=== PATIENT | female | born 1955 | race American Indian/Alaskan Native ===

== ENCOUNTER 2019-07-01 07:06 | Day surgery (SDC) | payer MEDICARE ==
[~2019-07-01 07:06] MED LIST: BACTERIOSTATIC SODIUM CHLORIDE 0.9% 30 ML VIAL INFILTRATI ONE; TETRACAINE 0.5% OPHTH SOLN 4ML OD SCH
--- NOTE | 2019-07-01 08:46 | Anesthesia Consultation ---
Anesthesia Consult and Med Hx Date of service: 07/01/19 - Airway Anesthetic Teeth Evaluation: Partials ROM Head & Neck: Adequate Mental/Hyoid Distance: Adequate Mallampati Class: Class III Intubation Access Assessment: Possibly Difficult - Pulmonary Exam CTA: Yes - Cardiac Exam Cardiac Exam: RRR - Pre-Operative Health Status ASA Pre-Surgery Classification: ASA3 Proposed Anesthetic Plan: MAC - Pulmonary Hx Smoking: No Hx Respiratory Symptoms: No Hx Sleep Apnea: (HIGH RISK) - Cardiovascular System Hx Hypertension: Yes (took coreg and amlodipine today) Hx Heart Attack/AMI: No Hx Percutaneous Transluminal Coronary Angioplasty (PTCA): No - Central Nervous System Hx Neuromuscular Disorder: No (neuropathy) CVA: No - Gastrointestinal Hx Gastroesophageal Reflux Disease: No - Endocrine Hx Renal Disease: No Hx Liver Disease: No Hx Insulin Dependent Diabetes: No Hx Non-Insulin Dependent Diabetes: No Hx Thyroid Disease: No - Hematic Hx Anemia: Yes - Other Systems Hx Obesity: Yes
--- NOTE | 2019-07-01 08:46 | Anesthesia Day of Surgery ---
Anesthesia Day of Surgery - Day of Surgery Patient Examined: Yes Patient H&P Reviewed: Yes Patient is NPO: Yes Beta Blockers: Yes
[2019-07-01] MEDS: TROPICAMIDE 1% OPHTH SOLN 3 ML OD SCH ×3 (08:50→09:00)
[2019-07-01] MEDS: PHENYLEPHRINE 2.5% OPHTH SOLN 2 ML OD SCH ×3 (08:50→09:00)
[2019-07-01] MEDS: MOXIFLOXACIN 0.5% OPHTH SOLN 3ML OD SCH ×3 (08:50→09:00)
[2019-07-01] MEDS ORDERED: MIDAZOLAM 2 MG/2 ML INJ ONE (10:10)
[2019-07-01] MEDS ORDERED: acetaZOLAMIDE 250 MG TAB PO NR (10:11)
[2019-07-01] MEDS ORDERED: prednisoLONE ACETATE 1% OPHTH SUSP 5 ML OD NR (10:11)
[2019-07-01] MEDS ORDERED: fentaNYL 100 MCG/2 ML INJ ONE (10:12)
--- NOTE | 2019-07-01 10:12 | Operative Report ---
Operative Report Operative Report: PATIENT'S NAME: DATE OF : DATE OF SURGERY: 07/01/2019 PREOPERATIVE DIAGNOSIS: Cataract right eye POSTOPERATIVE DIAGNOSIS: Same OPERATIVE PROCEDURE: Phacoemulsification with intraocular lens implantation, right eye SURGEON: Ashly Gross M.D. CREDIT REVIEW ANALYST SURGEON: Flower Lens: [id number] 19.0 D ANESTHESIA: Monitored anesthesia care in combination with topical and intracameral anesthesia because of the established specific risk of reflux, arrhythmias, or anxiety attacks associated with ocular manipulation, as well as the difficulty of the lead teller to manage such potentially catastrophic events while simultaneously attempting to complete the surgical procedure and was deemed necessary for the patient's safety to have an Progress Developer present during the procedure whenever possible. An Progress Developer was utilized to regulate the intravenous sedation of the patient so the patient was cooperative yet not asleep in order for the patient to successfully maintain fixation of the eye on the operating light of the microscope. COMPLICATIONS: No surgical complications No blood loss. ALLERGIES: No known drug allergies PROGNOSIS: Excellent INDICATIONS FOR SURGERY: The patient is undergoing surgery in the hopes of eliminating or improving these visual difficulties. PROCEDURE: After arriving at the surgery center, the patient was given topical anesthetic and dilating drops, as noted in the record. The patient was then taken into the operating room and given more anesthetic drops. The eyelids, lashes, and lid margins were scrubbed with Betadine solution, and the patient was draped. The Nurse Progress Developer administered IV sedation and monitored the patient during the procedure. The eye was then fixated with a 0.12, and a stab incision was made in the peripheral clear cornea into the anterior chamber. This was made on my left side. Viscoelastic was next used to fill the anterior chamber. The eye was once again fixated with the 0.12 forceps and a keratome was used make an incision in clear cornea peripherally on my right hand side temporally. The capsule forceps were used to open the central anterior capsule and then make a continuous round capsulotomy. Hydrodissection was carried out utilizing a cannula and balanced salt solution to delineate the cortical material from the capsule and the nucleus from the cortical material. The phaco tip was introduced into the eye and used to remove the anterior cortical material in the area of the capsulotomy. Then the phaco tip was buried into the nucleus, and a chopping instrument was introduced into the eye and used to provide countertraction in the nucleus between this instrument and the phaco tip fracturing the nucleus. This procedure was repeated multiple times, providing multiple small segments of the lens, and then the phaco tip was used to remove each of these segments. An I/A tip was then used to remove the remaining cortex. The anterior chamber was refilled with viscoelastic. An one-piece, acrylic intraocular lens was then placed into an inserting cartridge. The tip of the inserting cartridge was introduced into the keratome incision and into the anterior chamber. The implant was gently advanced through the cartridge and into the eye, where it unfolded, and both haptics were placed in the capsular bag, where it centered nicely and appeared to be well fixated. After placement of the intraocular lens, the I~and~A handpiece was placed back into the eye and used to remove the viscoelastic, including viscoelastic that was behind the optic of the intraocular lens. The anterior chamber was then filled with balanced salt solution, and hydration of the wound was used to cause swelling of the wound and more appropriate watertight closure. When the wound was found to be firm, the patient was asked to comment on how bright the light was. If there was no light perception at all or if the light was substantially dimmer than during the rest of the surgery, the amount of fluid in the eye was decompressed to lower the intraocular pressure until the patient could see the b right light again. This was done to avoid any damage or decreased blood flow to the optic nerve. MEDICATIONS APPLIED AT END OF SURGERY: One drop of Pred Forte and Vigamox The patient was given a shield to wear at night and was instructed not to rub or push on the eye. DISCHARGE SUMMARY: The patient was released in stable condition. The patient and those with the patient were given a written sheet of postoperative instructions and counseling on any abnormal laboratory studies. The patient is to see us tomorrow for follow-up in the office and is to call immediately for any difficulties. Ashly Gross M.D. Date
--- NOTE | 2019-07-01 10:12 | Short Stay Summary ---
Short Stay Documentation Date of service: 07/01/19 - History H&P: obtained from office - Allergies and Medications Current Medications: Allergies No Known Allergies Allergy (Verified 06/29/19 14:56) Home Medications Medication Instructions Recorded Confirmed Last Taken Type Allopurinol [Zyloprim] 300 mg PO QDAY 06/29/19 06/29/19 06/30/19 History Diclofenac 1% [Diclofenac 1% 1 applic TP QID 06/29/19 06/29/19 06/30/19 History topical gel] Ferrous Sulfate [Feosol] 325 mg PO QDAY 06/29/19 06/29/19 06/30/19 History Gabapentin [Neurontin] 100 mg PO Q8HR 06/29/19 06/29/19 06/30/19 History Ibuprofen [Motrin] 800 mg PO Q8HR PRN 06/29/19 06/29/19 06/30/19 History Losartan/Hydrochlorothiazide 1 each PO DAILY 06/29/19 06/29/19 06/30/19 History [Losartan-Hctz 100-25 mg Tab] Pregabalin [Lyrica] 75 mg PO BID 06/29/19 06/29/19 07/01/19 06:00 History Sulindac 200 mg PO BID 06/29/19 06/29/19 06/30/19 History amLODIPine [Norvasc] 10 mg PO DAILY 06/29/19 06/29/19 07/01/19 06:00 History carvediloL [Coreg] 25 mg PO BID 06/29/19 06/29/19 07/01/19 06:00 History cycloSPORINE [Restasis 0.05%] 1 drop OP BID 06/29/19 06/29/19 06/30/19 History rOPINIRole [Requip] 1 mg PO QHS 06/29/19 06/29/19 06/30/19 History Active Medications Acetazolamide (Diamox) 500 mg PO ONCE NR Stop: 07/01/19 14:00 Moxifloxacin HCl (Vigamox) 1 drops OD Q5MIN YUNG Stop: 07/01/19 16:01 Last Admin: 07/01/19 09:00 Dose: 1 drops Documented by: Phenylephrine HCl (Ak-Dilate) 1 drops OD Q5MIN YUNG Stop: 07/01/19 16:00 Last Admin: 07/01/19 09:00 Dose: 1 drops Documented by: Prednisolone Acetate (Pred Forte 1%) 1 drops OD ONCE ONE Stop: 07/01/19 10:12 Tetracaine HCl (Tetracaine 0.5%) 1 drops OD Q5M YUNG Stop: 07/01/19 16:00 Last Admin: 07/01/19 08:50 Dose: 1 drops Documented by: Tropicamide (Mydriacyl) 1 drops OD Q5MIN YUNG Stop: 07/01/19 16:00 Last Admin: 07/01/19 09:00 Dose: 1 drops Documented by: - Brief post op/procedure progress note Date of procedure: 07/01/19 Pre-op diagnosis: right cataract Post-op diagnosis: same Procedure: Phacoemulsification with intraocular lens insertion right eye Anesthesia: MAC, local Surgeon: DIONICIO HO Estimated blood loss: none Pathology: none Condition: stable - Disposition Condition at discharge: Good Disposition: DC-01 TO HOME OR SELFCARE - Discharge Diagnoses (1) Cortical age-related cataract, right eye Status: Resolved Short Stay Discharge Plan Follow up with: YUNG SOLORZANO MD [Primary Care Provider] - 7 Days
[2019-07-01 11:12] VITALS: BP 105/70
--- NOTE | 2019-07-01 12:04 | Post Anesthesia Evaluation ---
- Post Anesthesia Evaluation Patient Participated: Yes Airway Patent: Yes Stable Respiratory Function: Yes Nausea/Vomiting: No Temp > 96.8F: Yes Pain Manageable: Yes Adequeate Hydration: Yes Anesthesia Complications: No
== END 2019-07-01 07:07 | disposition home or self-care (01) ==
LOC: OR 07:06
DX: H25.011 Cortical age-related cataract, right eye (principal); G62.9 Polyneuropathy, unspecified; I10 Essential (primary) hypertension; M19.90 Unspecified osteoarthritis, unspecified site; G47.30 Sleep apnea, unspecified; E66.9 Obesity, unspecified; Z68.35 Body mass index [BMI] 35.0-35.9, adult; Z79.899 Other long term (current) drug therapy; Z98.891 History of uterine scar from previous surgery; Z96.642 Presence of left artificial hip joint; Z98.890 Other specified postprocedural states; Z80.8 Family history of malignant neoplasm of other organs or systems; Z98.42 Cataract extraction status, left eye; Z86.2 Personal history of diseases of the blood and blood-forming organs and certain disorders involving the immune mechanism
CPT/HCPCS: 66984; J2250; J3010; V2632